=== PATIENT | male | born 1965 | race African-American/Black ===

== ENCOUNTER 2017-12-09 17:04 | Inpatient (IN) | payer OTHER ==
[2017-12-09 18:41] LABS: Absolute Lymphocytes (CBC) 2.4 K/uL (0.7-4.9); Absolute Monocytes 1.2 K/uL (0.1-1.3); Absolute Neutrophil 2.7 K/uL (1.8-8.0); Basophils % 0.7 % (0-1.3); Eosinophils % 5.2 % (0-4.4); Hematocrit 33.3 % (39.6-49.0); Lymphocytes % 36.3 % (15.3-44.8); MCH 35.5 pg (27.0-35.0); MCV 106.7 fL (80-100); MPV 9.6 fL (7.6-11.3); RBC Red Blood Cell Count 3.12 M/uL (4.33-5.43)
[2017-12-09 18:48] LABS: Bicarbonate 26 mEq/L (21-31); Glucose Level 113 mg/dL (65-120); Lipase 34 U/L (22-51); Potassium 3.5 mEq/L (3.6-5.0); Sodium Level 135 mEq/L (135-145)
[2017-12-09 18:54] LABS: ALT/SGPT 60 IU/L (10-60); AST/SGOT 135 IU/L (10-42); Albumin 1.9 g/dL (3.2-5.5); Alkaline Phosphatase 160 IU/L (42-121); BUN Blood Urea Nitrogen 5 mg/dL (6-20); Bilirubin Direct 1.4 mg/dL (0-0.2); Bilirubin Total 3.9 mg/dL (0.3-1.2); Protein, Total 7.3 g/dL (6.0-8.3)
[2017-12-09] MEDS ORDERED: LACTULOSE 20 GM/30 ML UCUP ONE (19:33)
--- NOTE | 2017-12-09 19:36 | ER ---
Nurse's Notes [facility] Name: Ravinder Mancilla III Age: 52 yrs Sex: Male : 1965 Arrival Date: 12/09/2017 Time: 17:10 Bed 13 Private MD: Diagnosis: Ascites;Fever presenting with conditions classified elsewhere Presentation: 12/09 17:15 Presenting complaint: Patient states: i was diagnosed with a hepatitis C today, i was hj sent here today to possibly get all the fluids out of my belly; reports SOB; states, gained 20 lbs in 2 months;. Transition of care: patient was not received from another setting of care. Onset of symptoms was December 09, 2017. Initial Sepsis Screen: Does the patient meet any 2 criteria? No. Patient's initial sepsis screen is negative. Does the patient have a suspected source of infection? No. Patient's initial sepsis screen is negative. Care prior to arrival: None. 17:15 Method Of Arrival: Ambulatory 17:15 Acuity: ISAURA 3 hj Triage Assessment: 17:19 General: Appears in no apparent distress. uncomfortable, Behavior is calm, cooperative, hj appropriate for age. Pain: Denies pain. GI: Reports nausea. Historical: - Allergies: 17:19 Ibuprofen; hj 17:19 Motrin; - Home Meds: 17:19 amlodipine oral [Active]; Hydrochlorothiazide Oral [Active]; hj - PMHx: 17:19 Hypertension; Hepatitis; - PSHx: 17:19 None; hj - Immunization history:: Adult Immunizations up to date. - Social history:: Smoking status: Patient/guardian denies using tobacco. Screenin:23 Abuse screen: Denies threats or abuse. Nutritional screening: No deficits noted. em Tuberculosis screening: No symptoms or risk factors identified. Fall Risk None identified. Assessment: 17:20 GI: Bowel sounds present X 4 quads. Abd is soft Abdomen is tender to palpation Reports acsites. 17:50 General: Appears in no apparent distress. comfortable, Behavior is calm, cooperative, em Reports told to go to the ER, dx with hepatitis C today and was told to have some fluid drained. Pain: Denies pain. Neuro: Level of Consciousness is awake, alert, obeys commands, Oriented to person, place, time, situation. Cardiovascular: Heart tones S1 S2 present Capillary refill < 3 seconds Patient's skin is warm and dry. Respiratory: Airway is patent Respiratory effort is even, unlabored, Respiratory pattern is regular, symmetrical, Breath sounds are clear bilaterally. GI: Abdomen is round non-distended, Bowel sounds present X 4 quads. : No signs and/or symptoms were reported regarding the genitourinary system. EENT: No signs and/or symptoms were reported regarding the EENT system. Derm: Skin is intact, Skin is pink, warm \T\ dry. Musculoskeletal: Range of motion: intact in all extremities. 18:00 Reassessment: Patient appears in no apparent distress at this time. I agree with the iw above assessment by Galileo Galarza LVN. 19:42 General: Appears in no apparent distress. comfortable, Behavior is calm, cooperative, tl2 appropriate for age. Pain: Denies pain. Neuro: Level of Consciousness is awake, alert, obeys commands, Oriented to person, place, time, situation. Cardiovascular: Denies chest pain. Respiratory: Airway is patent Respiratory effort is even, unlabored, Respiratory pattern is regular, symmetrical, Breath sounds are clear bilaterally. GI: Abdomen is round distended, noted to have ascites, Bowel sounds present X 4 quads. firm. : No signs and/or symptoms were reported regarding the genitourinary system. Derm: Skin is pink, warm \T\ dry. 20:47 Reassessment: Patient appears in no apparent distress at this time. Patient and/or tl2 family updated on plan of care and expected duration. Pain level reassessed. Patient is alert, oriented x 3, equal unlabored respirations, skin warm/dry/pink. 22:17 Reassessment: Patient appears in no apparent distress at this time. Patient and/or tl2 family updated on plan of care and expected duration. Pain level reassessed. Patient is alert, oriented x 3, equal unlabored respirations, skin warm/dry/pink. Pt stable and ready for transport to floor. Vital Signs: 17:20 BP 126 / 80; Pulse 115; Resp 18; Temp 100.0(TE); Pulse Ox 98% on R/A; Weight 122.47 kg; hj Height 5 ft. 7 in. (170.18 cm); 19:42 BP 149 / 91; Pulse 107; Resp 18; Pulse Ox 100% on R/A; tl2 20:47 BP 143 / 91; Pulse 109; Resp 20; Pulse Ox 97% on R/A; tl2 17:20 Body Mass Index 42.29 (122.47 kg, 170.18 cm) ED Course: 17:10 Patient arrived in ED. mr 17:17 Triage completed. hj 17:20 Arm band placed on right wrist. hj 17:35 Emerald [facility]C [facility] snw 17:35 Kendall Blas MD is Attending Physician. snw 17:55 Galileo Galarza LVN is Primary Nurse. em 18:20 No provider procedures requiring assistance completed. Inserted saline lock: 20 gauge em in right antecubital area, using aseptic technique. Blood collected. 18:20 Initial lab(s) drawn, by me, sent to lab. First set of blood cultures drawn by me. em 18:21 X-ray completed. Portable x-ray completed in exam room. Patient tolerated procedure ml well. 18:23 Abdomen Acute Series XRAY In Process Unspecified. EDMS 18:25 Patient has correct armband on for positive identification. Allergy band placed. Placed em in gown. Bed in low position. Call light in reach. Side rails up X2. Adult w/ patient. 19:35 Brianna Yan MD is Hospitalizing Provider. snw 22:17 Patient admitted, IV remains in place. tl2 Administered Medications: 19:40 Drug: Lactulose 20 grams Volume: 30 ml; Route: PO; tl2 22:19 Follow up: Response: No adverse reaction tl2 Outcome: 19:36 Decision to Hospitalize by Provider. snw 22:17 Admitted to Med/surg accompanied by tech, family with patient, via wheelchair, room tl2 206, with chart, Report called to JAYJAY Anguiano 22:17 Condition: stable 22:17 Discharge instructions given to patient, Instructed on the need for admit. 22:20 Patient left the ED. tl2 Signatures: Dispatcher [employer] EDNE Emerald Sequeira FNP-C FNP-Keri Thomas Galileo Galarza, ACCELERATOR TECHNICIAN ACCELERATOR TECHNICIAN em Velma Leyva RN RN iw Lopez, Melissa ml Joaquin, Henry, RN RN hj Knox, Taylor, RN RN tl2 Corrections: (The following items were deleted from the chart) 17:15 Presenting complaint: Patient states: i was diagnosed with a hepatitis C today, i hj was sent here today to possibly get all the fluids out of my belly; reports SOB; hj 17:20 Pulse 115bpm; Resp 18bpm; Pulse Ox 98% RA; Temp 100.0F Temporal; 122.47 kg; hj Height 5 ft. 7 in.; BMI: 42.2; : 17:50 General: Appears in no apparent distress. comfortable, Behavior is calm, em cooperative, em
--- NOTE | 2017-12-09 19:37 | EDPHYS ---
Physician Documentation [facility] Name: Ravinder Mancilla III Age: 52 yrs Sex: Male : 1965 Arrival Date: 12/09/2017 Time: 17:10 Bed 13 Private MD: ED Physician Kendall Blas HPI: 12/09 19:16 This 52 yrs old Black Male presents to ER via Ambulatory with complaints of Abdominal snw Swelling. 19:16 The patient presents with abdominal distention that is diffuse. Onset: The snw symptoms/episode began/occurred 2 week(s) ago, and became worse and became persistent. The symptoms do not radiate. Associated signs and symptoms: Pertinent positives: shortness of breath. The symptoms are described as constant. Severity of pain: At its worst the pain was mild. The patient has not experienced similar symptoms in the past. seeing someone in [place]. Pt states he had been going to see PCP for swelling. Stopped taking HTN meds because he was swelling all the way to his face. Labs sent for Hepatitis. Pt was called today and it was suggested he come to ED for a paracentesis. Historical: - Allergies: 17:19 Ibuprofen; hj 17:19 Motrin; hj - Home Meds: 17:19 amlodipine oral [Active]; Hydrochlorothiazide Oral [Active]; hj - PMHx: 17:19 Hypertension; Hepatitis; hj - PSHx: 17:19 None; hj - Immunization history:: Adult Immunizations up to date. - Social history:: Smoking status: Patient/guardian denies using tobacco. ROS: 19:15 Constitutional: Negative for fever, chills, and weight loss, Eyes: Negative for injury, snw pain, redness, and discharge, ENT: Negative for injury, pain, and discharge, Neck: Negative for injury, pain, and swelling, Cardiovascular: Negative for chest pain, palpitations, and edema, Respiratory: Negative for shortness of breath, cough, wheezing, and pleuritic chest pain. 19:15 Back: Negative for injury and pain, : Negative for injury, bleeding, discharge, and swelling. 19:15 Skin: Negative for injury, rash, and discoloration, Neuro: Negative for headache, weakness, numbness, tingling, and seizure. 19:15 Abdomen/GI: Positive for abdominal distension. 19:15 MS/extremity: Positive for swelling. Exam: 19:12 Constitutional: This is a well developed, well nourished patient who is awake, alert, snw and in no acute distress. Head/Face: Normocephalic, atraumatic. Eyes: Pupils equal round and reactive to light, extra-ocular motions intact. Lids and lashes normal. Conjunctiva and sclera are icteric and not injected. Cornea within normal limits. Periorbital areas with no swelling, redness, or edema. ENT: Nares patent. No nasal discharge, no septal abnormalities noted. Tympanic membranes are normal and external auditory canals are clear. Oropharynx with no redness, swelling, or masses, exudates, or evidence of obstruction, uvula midline. Mucous membranes moist. Neck: Trachea midline, no thyromegaly or masses palpated, and no cervical lymphadenopathy. Supple, full range of motion without nuchal rigidity, or vertebral point tenderness. No Meningismus. Chest/axilla: Normal chest wall appearance and motion. Nontender with no deformity. No lesions are appreciated. Cardiovascular: Regular rate and rhythm with a normal S1 and S2. No gallops, murmurs, or rubs. Normal PMI, no JVD. No pulse deficits. Respiratory: Lungs have equal breath sounds bilaterally, clear to auscultation and percussion. No rales, rhonchi or wheezes noted. No increased work of breathing, no retractions or nasal flaring. 19:12 Back: No spinal tenderness. No costovertebral tenderness. Full range of motion. Skin: Warm, dry with normal turgor. Normal color with no rashes, no lesions, and no evidence of cellulitis. 19:12 Abdomen/GI: Inspection: distension, that is severe, Bowel sounds: normal, Palpation: tense. 19:12 Musculoskeletal/extremity: Extremities: Circulation is intact in all extremities. Sensation intact. tight edematous lower extremities up to thighs. Vital Signs: 17:20 BP 126 / 80; Pulse 115; Resp 18; Temp 100.0(TE); Pulse Ox 98% on R/A; Weight 122.47 kg; hj Height 5 ft. 7 in. (170.18 cm); 19:42 BP 149 / 91; Pulse 107; Resp 18; Pulse Ox 100% on R/A; tl2 20:47 BP 143 / 91; Pulse 109; Resp 20; Pulse Ox 97% on R/A; tl2 17:20 Body Mass Index 42.29 (122.47 kg, 170.18 cm) hj MDM: 17:41 Patient medically screened. snw 19:36 Data reviewed: vital signs, nurses notes. Data interpreted: Pulse oximetry: on room air snw is 98 %. Interpretation: normal. Counseling: I had a detailed discussion with the patient and/or guardian regarding: the historical points, exam findings, and any diagnostic results supporting the discharge/admit diagnosis, the presence of at least one elevated blood pressure reading (>120/80) during this emergency department visit, lab results, radiology results. Physician consultation: Brianna Yan MD was called at 19:37, was contacted at 19:37, regarding admission, to the medical/surgical unit. in the emergency department to see patient at 19:37. 12/09 17:37 Order name: Basic Metabolic Panel; Complete Time: 18:59 snw 12/09 17:37 Order name: CBC with Diff; Complete Time: 18:59 snw 12/09 17:37 Order name: Hepatic Function; Complete Time: 18:59 snw 12/09 17:37 Order name: Lipase; Complete Time: 18:59 snw 12/09 17:37 Order name: Urine Microscopic Only snw 12/09 17:37 Order name: Blood Culture Adult (2) snw 03 17:37 Order name: IV Saline Lock; Complete Time: 18:15 snw 03 17:37 Order name: Labs collected and sent; Complete Time: 18:15 snw 12/09 17:37 Order name: Abdomen Acute Series XRAY; Complete Time: 20:05 snw 03 17:37 Order name: AMMONIA; Complete Time: 18:50 snw 12/09 17:37 Order name: Lactate; Complete Time: 18:59 snw Administered Medications: 19:40 Drug: Lactulose 20 grams Volume: 30 ml; Route: PO; tl2 22:19 Follow up: Response: No adverse reaction tl2 Disposition: 12/10 06:51 Co-signature as Attending Physician, Kendall Blas MD I agree with the assessment and wa plan of care. Disposition: 12/09/17 19:36 Hospitalization ordered by Brianna Yan for Inpatient Admission. Preliminary diagnosis are Ascites, Fever presenting with conditions classified elsewhere. - Bed requested for Telemetry/MedSurg (Inpatient). - Status is Inpatient Admission. tl2 - Condition is Stable. - Problem is an acute exacerbation. - Symptoms have worsened. UTI on Admission? No Signatures: Dispatcher [employer] EDPraful Li rg2 Emerald Sequeira, FORGE TENDER-C FORGE TENDER-Csnw Galileo Galarza, CONTRACT DESIGNER CONTRACT DESIGNER em Micky Rome RN RN Cece Aguayo RN RN tl2 Kendall Blas MD MD wi Corrections: (The following items were deleted from the chart) 12/09 20:50 19:36 Hospitalization Ordered by Brianna Yan MD for Inpatient Admission. Preliminary rg2 diagnosis is Ascites; Fever presenting with conditions classified elsewhere. Bed requested for Telemetry/MedSurg (Inpatient). Status is Inpatient Admission. Condition is Stable. Problem is an acute exacerbation. Symptoms have worsened. UTI on Admission? No. snw 22:20 20:50 12/09/2017 19:36 Hospitalization Ordered by Brianna Yan MD for Inpatient tl2 Admission. Preliminary diagnosis is Ascites; Fever presenting with conditions classified elsewhere. Bed requested for Telemetry/MedSurg (Inpatient). Status is Inpatient Admission. Condition is Stable. Problem is an acute exacerbation. Symptoms have worsened. UTI on Admission? No. rg2
--- NOTE | 2017-12-09 20:03 | RAD REPORT ---
EXAM DESCRIPTION: RAD - Abdomen Acute Series - 12/09/2017 6:32 pm CLINICAL HISTORY: Shortness of breath, abdominal pain COMPARISON: None. FINDINGS: Lungs are underinflated. Interstitial and alveolar opacification in each lung base present . Heart size is upper normal. Mild vascular engorgement seen. No pneumothorax or large pleural effusi on. Trachea is midline. Prominent small bowel loops are present. This could be ileus or gastroenteritis. There is seen to the distal rectum. Small bowel obstruction is unlikely. No free air or pneumatosis. No suspicious calcif ications. No other suspicious for significant findings. IMPRESSION: Bilateral lung base opacification accentuated by shallow inspiration. Lung base pneumoni a not excluded. Prominent small bowel loops favoring gas or enteritis or ileus. Small bowel obstruction is unlikely but continued follow-up is needed. There is no free air or pneuma tosis.
--- NOTE | 2017-12-09 22:06 | P.HP ---
Certification for Inpatient Patient admitted to: Inpatient With expected LOS: >2 Midnights Practitioner: I am a practitioner with admitting privileges, knowledge of patient current condition, hospital course, and medical plan of care. Services: Services provided to patient in accordance with Admission requirements found in Title 42 Section 412.3 of the Code of Federal Regulations Patient History Date of Service: 12/09/17 Reason for admission: anasarca History of Present Illness: Mr Mancilla is a 52 years old male with history of HTN, who states that since 1 year ago, he experience lower extremity edema, which improve overnight but come back during day time. In the last couple of month he gained 20 LB. Lately he noticed that his abdominal girth is increasing, along with progressive SOB. He denied cough or fever, however, he was febrile when arrived to ED 100.0F. Previously he went to see his PCP, and he realized today that has Hep C. In ER work up, lab work remarkable for normal WBC count, elevated ammonia level 61. No nausea, vomiting or diarrhea. Allergies amlodipine Allergy (Verified 12/09/17 22:09) Hives hydrochlorothiazide Allergy (Verified 12/09/17 22:09) Hives ibuprofen Allergy (Verified 12/09/17 21:23) Hives Home Medications: NK [No Home Meds] 12/09/17 - Past Medical/Surgical History -: liver cirrhosis -: hepatitis C -: HTN Past Surgical History: Reviewed- Non-Contributory - Family History Family History: Reviewed- Non-Contributory - Social History Smoking Status: Never smoker Alcohol use: No CD- Drugs: No Place of Residence: Home Review of Systems 10-point ROS is otherwise unremarkable Physical Examination - Physical Exam General: Alert, In no apparent distress HEENT: Atraumatic, PERRLA, Mucous membr. moist/pink, EOMI, Scleral icterus Neck: Supple, 2+ carotid pulse no bruit, No LAD, Without JVD or thyroid abnormality Respiratory: Diminished, Dull Cardiovascular: Regular rate/rhythm, Normal S1 S2 Gastrointestinal: Normal bowel sounds, No tenderness Musculoskeletal: No tenderness, Swelling (LE extremity edema 3+) Integumentary: No rashes Neurological: Normal speech, Normal strength at 5/5 x4 extr, Normal tone, Normal affect Lymphatics: No axilla or inguinal lymphadenopathy - Studies Laboratory Data (last 24 hrs) 12/09/17 18:10: WBC 6.7, Hgb 11.1 L, Hct 33.3 L, Plt Count 124 L 12/09/17 18:10: Sodium 135, Potassium 3.5 L, BUN 5 L, Creatinine 0.64, Glucose 113, Total Bilirubin 3.9 H, AST 135 H, ALT 60, Alkaline Phosphatase 160 H, Lipase 34 Assessment and Plan - Problems (Diagnosis) (1) Liver cirrhosis Current Visit: Yes Status: Acute Qualifiers: Hepatic cirrhosis type: unspecified hepatic cirrhosis Ascites presence: with ascites Qualified Code(s): K74.60 - Unspecified cirrhosis of liver (2) Hepatitis C Current Visit: Yes Status: Acute Qualifiers: Viral hepatitis chronicity: chronic Hepatic coma status: without hepatic coma Qualified Code(s): B18.2 - Chronic viral hepatitis C (3) Fever Current Visit: Yes Status: Acute Qualifiers: Fever type: unspecified Qualified Code(s): R50.9 - Fever, unspecified - Plan The patient will be admitted to the hospital due to dyspnea secondary to severe ascites. He has fever with no obvious source of infection, other that possible SBP. Will cover with cefotaxime, order US ghided paracentesis. Consult GI specialist. - Advance Directives Does patient have a Living Will: No Does patient have a Durable POA for Healthcare: No - Code Status/Comfort Care Code Status Assessed: Yes Code Status: Full Code
[2017-12-09] MEDS: ACETAMINOPHEN 500 MG TAB PO PRN (22:51)
[2017-12-10] MEDS ORDERED: CEFOTAXIME SODIUM 1 GM/VIAL ONE (00:52)
[2017-12-10] MEDS ORDERED: CEFOTAXIME SODIUM 1 GM/VIAL IV SCH (01:00)
[2017-12-10] MEDS ORDERED: NA CHLORIDE 0.9% 0 ML ONE (01:02)
[2017-12-10] MEDS ORDERED: NA CHLORIDE 0.9% 250 ML ONE (01:03)
[2017-12-10] MEDS ORDERED: NA CHLORIDE 0.9% 100 ML ONE (01:07)
[2017-12-10] MEDS: ACETAMINOPHEN 500 MG TAB PO PRN (02:35)
[2017-12-10 03:42] LABS: Urine Appearance CLEAR; Urine Blood NEGATIVE (NEG); Urine Color ORANGE; Urine Glucose NEGATIVE (NEG); Urine Protein NEGATIVE (NEG); Urine Specific Gravity 1.025 (1.005-1.030)
[2017-12-10 04:21] LABS: Urine Bilirubin 2+ (NEG)
[2017-12-10 04:22] LABS: Urine Bacteria <20 /HPF (NONE SEEN); Urine RBC NONE SEEN /HPF (NONE SEEN)
[2017-12-10 04:23] LABS: Urine Culture Reflex Order REFLEXED; Urine Mucus HEAVY /HPF (NONE SEEN)
[2017-12-10 06:43] LABS: Absolute Lymphocytes (CBC) 2.7 K/uL (0.7-4.9); Absolute Monocytes 1.3 K/uL (0.1-1.3); Absolute Neutrophil 2.6 K/uL (1.8-8.0); Basophils % 0.6 % (0-1.3); Eosinophils % 4.8 % (0-4.4); Hematocrit 32.3 % (39.6-49.0); Lymphocytes % 39.4 % (15.3-44.8); MPV 9.6 fL (7.6-11.3); RBC Red Blood Cell Count 3.07 M/uL (4.33-5.43)
[2017-12-10 06:47] LABS: MCV 105.3 fL (80-100)
[2017-12-10 07:50] LABS: ALT/SGPT 57 IU/L (10-60); AST/SGOT 134 IU/L (10-42); Albumin 1.8 g/dL (3.2-5.5); Alkaline Phosphatase 136 IU/L (42-121); BUN Blood Urea Nitrogen 6 mg/dL (6-20); Bicarbonate 25 mEq/L (21-31); Bilirubin Total 3.6 mg/dL (0.3-1.2); Glucose Level 78 mg/dL (65-120); Potassium 3.9 mEq/L (3.6-5.0); Protein, Total 6.6 g/dL (6.0-8.3); Sodium Level 136 mEq/L (135-145)
[2017-12-10 08:51] LABS: Protime INR 1.94
[2017-12-10] MEDS: CEFOTAXIME SODIUM IV SCH ×2 (09:16→17:00)
[2017-12-10] MEDS: NA CHLORIDE 0.9% IV SCH ×2 (09:16→17:00)
--- NOTE | 2017-12-10 12:29 | PN ---
Date of Progress Note: 12/10/2017 Subjective: The patient seen and examined. Chart reviewed and case discussed with RN. The patient states he was recently diagnosed with hepatitis C and still has significant amount of ascites with ab dominal distention. Review of Systems: Negative except as above. Medications: Reviewed. Physical Examination: Vital Signs: Temperature 99.4, heart rate 109, blood pressure 145/85, respirations 20, O2 93% on ofelia m air. General: Awake, alert, and oriented x3, some mild distress. Obese, BMI 42.4. CV: S1, S2. No murmurs. Regular rate and rhythm. Peripheral pulses present. Respiratory: Moving air well. Some diminished breath sounds at the bases. No wheezing or crackles. Gastrointestinal: Abdomen is distended, nontender. Positive bowel sounds. No guarding or rigidity. Positive fluid wave. Large ascites. Extremities: No clubbing, cyanosis. The patient does have lower extremity edema bilaterally. Neurologic: Nonfocal. Laboratory Data: Sodium 136, potassium 3.9, chloride 107, CO2 25, BUN 6, creatinine 0.65, glucose 78 , calcium 7.9. Total bilirubin 3.6, ALT 57, AST 134, alkaline phosphatase 136, albumin 1.8. WBC 7, H and H 11 and 32.3, MCV 105.3, platelets 115. INR 1.94. Blood cultures pending. Assessment And Plan: A 52-year-old male with: 1.Acute liver cirrhosis with ascites secondary to hepatitis C. The patient is going for paracentesi s. 2.Hepatitis C, chronic without coma. The patient has just recently been diagnosed. 3.Fever. 4.Morbid obesity, BMI 42. 5.Essential hypertension. We will resume home medications as appropriate. Plan: Follow up with paracentesis fluid analysis, continue treatment, and follow up with GI. /MANAV Voice ID: [id number] Report ID: [id number]
--- NOTE | 2017-12-10 12:50 | RAD REPORT ---
EXAM DESCRIPTION: US - Abdomen Exam Limited - 12/10/2017 12:19 pm CLINICAL HISTORY: Evaluate for ascites. COMPARISON: None. FINDINGS: Real-time sonography was performed to evaluate for ascites. Only a small volume of ascites is present. The volume of ascites is insufficient for paracentesis drainage at this time. Findings were discussed with Dr. Delong at 12:30 p.m. 12/10/2017 by telephone.
--- NOTE | 2017-12-10 18:13 | RAD REPORT ---
EXAM DESCRIPTION: CTAbdomen Pelvis W Contrast - 12/10/2017 5:49 pm CLINICAL HISTORY: Abdominal pain. COMPARISON: None. TECHNIQUE: Biphasic CT imaging of the abdomen and pelvis was performed with 100 ml non-ionic IV cont rast. All CT scans are performed using dose optimization technique as appropriate and may include automated exposure control or mA/KV adjustment according to patient size. FINDINGS: A small left pleural effusion is seen. The liver has a nodular contour compatible with mild cirrhosis. The spleen is normal in size. The fay creas, adrenal glands and kidneys are within normal limits. Low-density left renal lesion is present measuring 18 mm, likely a cyst but incompletely assessed. No bowel obstruction or free air seen. Mild thickening of the the right colon is noted. The appendix is normal. Mild ascites is noted. Mild anasarca is also seen. No evidence of significant lymphadeno liam. No suspicious bony findings. IMPRESSION: Mild ascites and mild anasarca noted. Small left pleural effusion. Mild liver cirrhosis. Thickening of the mucosa of the right colon may be related to portal colopathy.
[2017-12-10] MEDS: FUROSEMIDE 40 MG/4 ML VIAL IV SCH (18:19)
[2017-12-11] MEDS: NA CHLORIDE 0.9% IV SCH ×3 (01:10→16:56)
[2017-12-11] MEDS: CEFOTAXIME SODIUM IV SCH ×3 (01:10→16:56)
[2017-12-11 05:47] LABS: Absolute Lymphocytes (CBC) 2.1 K/uL (0.7-4.9); Absolute Monocytes 1.2 K/uL (0.1-1.3); Absolute Neutrophil 3.2 K/uL (1.8-8.0); Basophils % 0.4 % (0-1.3); Eosinophils % 5.7 % (0-4.4); Hematocrit 31.8 % (39.6-49.0); Lymphocytes % 30.9 % (15.3-44.8); MCH 35.8 pg (27.0-35.0); MCV 105.8 fL (80-100); MPV 9.3 fL (7.6-11.3); Monocytes % 16.7 % (3.3-12.3); RBC Red Blood Cell Count 3.01 M/uL (4.33-5.43)
[2017-12-11 06:13] LABS: ALT/SGPT 58 IU/L (10-60); AST/SGOT 130 IU/L (10-42); Albumin 1.7 g/dL (3.2-5.5); Alkaline Phosphatase 146 IU/L (42-121); BUN Blood Urea Nitrogen 5 mg/dL (6-20); Bicarbonate 27 mEq/L (21-31); Bilirubin Total 3.5 mg/dL (0.3-1.2); Glucose Level 84 mg/dL (65-120); Potassium 3.5 mEq/L (3.6-5.0); Protein, Total 6.7 g/dL (6.0-8.3); Sodium Level 136 mEq/L (135-145)
[2017-12-11 07:05] LABS: Platelet Estimate DECR; Urine White Blood Cell Casts OK
[2017-12-11 07:06] LABS: Blood Morphology Comment NOTED (NOT SEEN); Macrocytosis 1+
[2017-12-11] MEDS ORDERED: SPIRONOLACTONE 25 MG TABLET PO SCH (09:00)
[2017-12-11] MEDS ORDERED: POTASSIUM 25 MEQ EFFERV TAB PO ONE (09:00)
[2017-12-11] MEDS: FUROSEMIDE 40 MG/4 ML VIAL IV SCH ×2 (09:15→16:56)
[2017-12-11] MEDS: SPIRONOLACTONE 25 MG TABLET PO SCH (11:19)
[2017-12-11] MEDS: CARVEDILOL 12.5 MG TAB PO SCH ×2 (11:19→16:57)
--- NOTE | 2017-12-11 13:08 | CON ---
Attending Physician: Dr. Mariella Zavaleta. Consulting Physician: Aravind Leo M.D. Reason For Consultation: Cirrhosis, hepatitis C. History Of Presenting Illness: The patient is a 52-year-old gentleman with a history of hypertension , who was diagnosed 1 day prior to admission with hepatitis C. He states that he had been having ming e increased lower extremity edema for the last 1 year and had gained a significant 20 pounds. Sidney watkins really has a hepatitis C. He had come to the ER because of progressive shortness of breath and a l ow-grade fever, was admitted to the hospital and I saw the patient, he tells he felt better. He does not know how he acquired the hepatitis C. Allergies: TO AMLODIPINE, HYDROCHLOROTHIAZIDE, AND IBUPROFEN. Home Medications: None. Past Medical History: Hepatitis C, cirrhosis, hypertension. Past Surgical History: Noncontributory. Family History: Noncontributory. Social History: Denies smoking. Denies current alcohol use, but he says he used to drink heavy 20 y ears ago. Denies any drug use. Review of Systems: GI: As in HPI. Otherwise, negative. Remainder of 10-point review of system is negative. Physical Examination: HEENT: Head atraumatic, normocephalic. Pupils are equally reactive. Neck: Supple. Chest: Clear to auscultation bilaterally. Abdomen: Appears to be quite obese. There does not appear to be any patience ascites, but the abdomina l wall appears to be little thick, due to fluid collection resulting in anasarca. Bowel sounds are p resent. Extremities: There is 3+ pedal edema. Laboratory Data: Reviewed. White count is 6.7, hemoglobin 11.1, and platelets of 124, consistent wi th cirrhosis. The bilirubin is 3.9, AST 135, ALT 60. He underwent even for ultrasound-guided parace nteses, however, no significant tappable ascites was found. Impression: A 52-year-old gentleman with history of hepatitis C and cirrhosis also has appears to estrada ve anasarca. The ascites actually seems to be mild. Plan: Continue current management. He is on diuretics, which is appropriate. We will cover him wit h the antibiotics also for infection. When he is discharged, he can follow up in the GI clinic for f urther management and treatment of hepatitis C and his liver disease. US/MODL Voice ID: [id number] Report ID: [id number]
--- NOTE | 2017-12-11 14:32 | PN ---
Date of Progress Note: 12/11/2017 Subjective: The patient seen and examined. Chart reviewed and case discussed with RN. The patient states he is doing better. Does not complain of any abdominal pain. Swelling of his legs has improv ed. Was seen by GI yesterday. Review of Systems: Negative except as above. Medications: Reviewed. Physical Examination: Vital Signs: Temperature 99, heart rate 99, blood pressure 140/83, respirations 20, O2 95% on room a ir. General: Awake, alert, oriented x3. No acute distress. Morbidly obese male. BMI 41. CV: S1, S2. Regular rate and rhythm. Peripheral pulses present. No murmurs. Respiratory: Clear to auscultation bilaterally except at the bases there are some diminished breath sounds. No wheezing or stridor. Gastrointestinal: Abdomen is distended. Mild ascites. No tenderness. Bowel sounds positive. Extremities: No clubbing, cyanosis. The patient does have peripheral edema. Neurologic: Nonfocal. Laboratory Data: Sodium 136, potassium 3.5, chloride 105, CO2 27, BUN 5, creatinine 0.7, glucose 84, calcium 7.8, AST 130, ALT 58, alkaline phosphatase 146, albumin 1.7. WBC 6.9, H and H 10.8, 31.8, p latelets 117, neutrophils 46%. Blood cultures, no growth to date. Urine culture shows no growth. Abdomen pelvis CT with contrast shows mild ascites and mild anasarca noted. Small left pleural effus ion. Mild liver cirrhosis. Thickening of the mucosa of the right colon may be related to portal col opathy. Liver has a nodular contour compatible with mild cirrhosis. Assessment And Plan: A 52-year-old male with: 1.Acute liver cirrhosis with ascites secondary to hepatitis C. The patient does not have enough flu id to drain for paracentesis. He has been started on diuretics including Aldactone and Lasix. I neftaly l increase Aldactone dose. Edema has improved. 2.Hepatitis C, chronic without coma, recently diagnosed. The patient was seen by GI, appreciate the ir input and will need to follow up with GI and receive treatment to cure hepatitis C to avoid hepato cellular carcinoma in the future. 3.Fever. The patient has been afebrile greater than 24 hours. No growth in blood cultures. Doubt spontaneous bacterial peritonitis. 4.Morbid obesity, BMI of 41. 5.Essential hypertension, stable. Plan: Increase diuretics. Monitor I's and O's. Likely discharge in a.m. if continues to improve. /MANAV Voice ID: [id number] Report ID: [id number]
[2017-12-11] MEDS: ACETAMINOPHEN 500 MG TAB PO PRN (18:00)
--- NOTE | 2017-12-11 19:38 | CON ---
Date of Consultation: 12/10/2017 Diagnosis: 1.Cirrhosis of the liver. 2.Hepatitis C. History Of Present Illness: This is a case of a 52-year-old patient, who comes to the hospital with some abdominal pain yesterday. The patient has a distended abdomen so the primary doctors thought he might have some ascites since he had this issue before and they had admit him and they were going to do the tapping. They noticed the patient has minimal fluid not enough to have paracentesis. Since the patient has pain day before, a surgical consult was obtained. The patient today feels better. H e stated that he does have this abdomen distended all the time. He has cirrhosis of the liver and he is going to leave now with the pain on and off. Today, he feels better. There is no dysuria, hemat uria, hematochezia, or melena. No recent traveling out of the country. No family member sick at [facility]. He does not have any more short of breath or any fever and that is the reason he was admitted [facility] for the hospital. Past Medical History: As above. Hypertension also too. Surgical History: None. Social History: He does smoke and he does not drink anymore although he used to drink heavily for e last 20 years. Family History: Noncontributory. Review of Systems: Constitutional: Denies any fever. Respiratory: Denies any shortness of breath. Gastrointestinal: As above. The patient advised the importance of colonoscopy since it does not rem ember when was the last one. Genitourinary: Denies any dysuria, hematuria. Physical Examination: General: The patient is awake and alert. HEENT: Pupils are equal and reactive, anicteric. Neck: Supple. Chest: Clear. Heart: S1, S2. Abdomen: Softly distended. No guarding or rebound. No peritoneal signs. Rectal: Deferred. Extremity: Good capillary refill. Laboratory Data: Blood work shows WBC count of 6.7 with a hemoglobin of 11.1, potassium 3.5, total b ilirubin of 3.9, alkaline phosphatase 160. The patient had abdominal ultrasound done but they only f ound a small volume of ascites present. Assessment: A 52-year-old patient came in with shortness of breath, distention in his abdomen. It i s hard for me from his surgical standpoint to evaluate him, he is morbidly obese. I believe, for me to evaluate his abdomen inside, we would like to have a CAT scan of abdomen and pelvis, since this di stention is there, looking for colitis, looking for masses, looking for liver disease. We will be go ing to order that CT scan and we are going to proceed accordingly with more recommendations once we s ee that result. EDIE/MANAV Voice ID: [id number] Report ID: [id number]
[2017-12-12] MEDS: CEFOTAXIME SODIUM IV SCH ×2 (01:33→09:58)
[2017-12-12] MEDS: NA CHLORIDE 0.9% IV SCH ×2 (01:33→09:58)
[2017-12-12] MEDS: CARVEDILOL 12.5 MG TAB PO SCH (05:31)
[2017-12-12 06:00] LABS: Absolute Lymphocytes (CBC) 1.5 K/uL (0.7-4.9); Absolute Monocytes 0.9 K/uL (0.1-1.3); Absolute Neutrophil 2.8 K/uL (1.8-8.0); Basophils % 0.8 % (0-1.3); Eosinophils % 4.7 % (0-4.4); Hematocrit 33.5 % (39.6-49.0); Lymphocytes % 27.2 % (15.3-44.8); MCH 36.4 pg (27.0-35.0); MPV 8.9 fL (7.6-11.3); RBC Red Blood Cell Count 3.16 M/uL (4.33-5.43)
[2017-12-12 06:14] LABS: ALT/SGPT 55 IU/L (10-60); AST/SGOT 122 IU/L (10-42); Albumin 1.6 g/dL (3.2-5.5); Alkaline Phosphatase 128 IU/L (42-121); BUN Blood Urea Nitrogen 6 mg/dL (6-20); Bicarbonate 26 mEq/L (21-31); Bilirubin Total 3.1 mg/dL (0.3-1.2); Glucose Level 90 mg/dL (65-120); Magnesium 1.7 mg/dL (1.8-2.5); Protein, Total 6.3 g/dL (6.0-8.3); Sodium Level 134 mEq/L (135-145)
[2017-12-12] MEDS ORDERED: MAGNESIUM SULFATE 1 gm IVPB 1 GM/100 ML BAG IV ONE (06:20)
[2017-12-12] MEDS ORDERED: NA CHLORIDE 0.9% 100 ML ONE (06:51)
[2017-12-12] MEDS: FUROSEMIDE 40 MG/4 ML VIAL IV SCH (09:58)
[2017-12-12] MEDS: SPIRONOLACTONE 25 MG TABLET PO SCH (09:58)
--- NOTE | 2017-12-12 12:16 | RAD REPORT ---
EXAM DESCRIPTION: RAD - Chest Single View - 12/12/2017 6:41 am CLINICAL HISTORY: Shortness of breath. COMPARISON: None. FINDINGS: Portable technique limits examination quality. The lungs are underinflated resulting in vascular crowding. The heart is normal in size. No displaced fractures. IMPRESSION: Underinflated lungs.
--- NOTE | 2017-12-12 13:10 | CON ---
Chief Complaint: Swelling of the abdomen. Reason For Cardiology Consult: Episode of SVT. History Of Present Illness: Mr. Mancilla has never had heart trouble. He has cirrhosis from hepatitis C, alcoholism. He has had problems with bleeding. He has an INR of 1.94 without taking any kind of vitamin K antagonist. There is no history of atrial fibrillation, SVT. No history of syncope, presy ncope. He denies taking any medicines at home, but he has been given medicines to take at home in th e past. He has had multiple paracenteses in the past. Reviewing telemetry strips, there is a 5 seco nd episode of narrow complex tachycardia about 150 beats per minute, irregularly irregular. It looks like he had 5 seconds of atrial fibrillation. Mr. Mancilla is not a patient who could safely take any anticoagulants. He has improved his inability to comply with that. Physical Examination: General: Alert, oriented, pleasant, 5 feet 7 inches, 261 pounds, morbidly obese. Lungs: Clear. Heart: Reveals a regular rate and rhythm. No significant murmur, rub, or gallop. Abdomen: Soft. Recommendation: Since the patient had 5 seconds of SVT, possibly atrial fibrillation, no other arrhy thmia, no symptoms, I am going to recommend that he be given a beta-etta to take as an outpatient, but not anticoagulated. Thank you very much for kind referral of Mr. Ravinder Mancilla. MITRA/MANAV Voice ID: [id number] Report ID: [id number]
--- NOTE | 2017-12-12 14:40 | PN ---
Date of Progress Note: 12/12/2017 Subjective: The patient seen and examined, chart reviewed, and case discussed with RN. The patient doing well. States his edema is getting better. Shortness of breath is improved. Review of Systems: Negative except as above. Medications: Reviewed. Physical Examination: Vital Signs: Temperature 99.3, heart rate 82, blood pressure 104/65, respirations 16, O2 of 95% on r oom air. General: Awake, alert, oriented x3. No acute distress. Morbidly obese male. BMI 40. CV: S1, S2. No murmurs. Regular rate and rhythm. Peripheral pulses present. Respiratory: Diminished breath sounds at the bases. Some crackles heard. Gastrointestinal: Abdomen is soft, nontender, nondistended. Positive bowel sounds. Extremities: No clubbing, cyanosis. 2+ pedal edema. Neurologic: Nonfocal. Laboratory Data: Sodium 134, potassium 4, chloride 106, CO2 of 26, BUN 6, creatinine 0.65, glucose 9 0, calcium 7.8, magnesium 1.7, total bilirubin 3.1, AST 122, ALT 55, albumin 1.6. WBC 5.5, H and H a re 11.5 and 33.5, platelets 104. Blood cultures, no growth to date. Assessment And Plan: This is a 52-year-old male with: 1.Acute liver cirrhosis with ascites secondary to hepatitis C. Continue Lasix and Aldactone. Edema is improving. 2.Hepatitis C, chronic without coma, recently diagnosed. He will follow up with Gastroenterology, Ronnie Leo. The patient to be encouraged to follow up with Gastroenterology for treatment of his he patitis C. 3.Fever, afebrile. 4.Morbid obesity, BMI 40.9. 5.Essential hypertension, stable. 6.Supraventricular tachycardia. We will continue beta etta. Plan: Discharge if cleared by consultants. /MANAV Voice ID: [id number] Report ID: [id number]
--- NOTE | 2017-12-12 18:37 | DS ---
Date of Discharge: 12/12/2017 Consultants: Dr. Leo with GI Dr. Aly with General Surgery Dr. Fay with Cardiology. Admitting Diagnoses: 1.Acute liver cirrhosis with ascites. 2.Hepatitis C, chronic without coma. 3.Fever. Discharge Diagnoses: 1.Acute liver cirrhosis with ascites secondary to hepatitis C. 2.Hepatitis C, chronic without coma. 3.Fever, resolved. 4.Morbid obesity, BMI 40. 5.Essential hypertension, stable. 6.Supraventricular tachycardia, nonsustained. Hospital Course: The patient is a 52-year-old male who was admitted to the hospital for anasarca. T he patient was recently found out that he has hepatitis C, has been having progressive edema, shortne ss of breath, and fever. The patient came in for possible paracentesis. However, upon ultrasound ra diologist did not find much ascites to be removed. Procedure was canceled. Ultrasound of the abdome n showed only small volume ascites. CT scan of the abdomen and pelvis was done to evaluate for fur er abdominal pathology, which shows some mild ascites and mild anasarca and small left pleural effusi ons, mild liver cirrhosis, thickening of the mucosa of the colon related to portal colopathy. The pa erika was seen by GI and General Surgery for his symptoms. The patient was started on diuresis, whic h improved his condition. The patient was recommended to follow up with GI for further management an d treatment of his hepatitis C and liver disease. The patient's breathing improved. He was weaned o ff oxygen and his abdominal pain resolved. He was also seen by General Surgery Dr. Aly, did not recommend any surgical intervention at that time. The patient did have a run of ventricular tachyca rdia seen by Cardiology, started on beta etta. No recommendations for anticoagulation. The patie nt was then doing well. His repeat chest x-ray did show some under inflated lungs, however, clinical ly patient had significantly improved. The patient's weight dropped by 9 pounds indicating negative fluid balance. The patient's blood cultures were negative. Body fluid culture was not obtained due to no paracenteses being done. He did well on antibiotics. The patient was then cleared for dischar ge from consultants standpoint, was sent home in a stable condition. Activity: As tolerated. Medications: As per medication reconciliation list. Followup: Follow up with primary care physician in 2-3 days. Follow up with GI, Dr. Leo in 2 w eeks. Return to ER for worsening condition. Repeat chest x-ray in 1 week. Total time spent discharging patient was 37 minutes. For physical exam findings, please see progress note dictated on the day of discharge. /MANAV Voice ID: [id number] Report ID: [id number]
== END 2017-12-12 14:41 | disposition home or self-care (01) | DRG 433 ==
LOC: ER 17:04 → ERHOLD 19:53 → 2ND 21:12
PROVIDERS: ADMIT Internal Medicine; ATTEND Internal Medicine
DX: K74.60 Unspecified cirrhosis of liver (principal); Z68.41 Body mass index [BMI] 40.0-44.9, adult; I47.1 Supraventricular tachycardia; R18.8 Other ascites; B18.2 Chronic viral hepatitis C; E66.01 Morbid (severe) obesity due to excess calories; R50.9 Fever, unspecified; I10 Essential (primary) hypertension
CPT/HCPCS: 36415; 71045; 74022; 74177; 76705; 80048; 80053; 80076; 81001; 82140; 83605; 83690; 83735; 85025; 85610; 85730; 87040; 87086; 87088; 99285; J0698; J3475; Q9967